=== PATIENT | female | born 1975 | race Caucasian/White ===

== ENCOUNTER → 2017-02-18 | Outpatient (CLI) | payer OTHER | LOC: FIMAGING 14:43 | PROVIDERS: ATTEND Physician Assistant Medical | DX: G35 Multiple sclerosis (principal) ==

== ENCOUNTER 2017-07-23 20:07 | Emergency (ER) | payer OTHER ==
[2017-07-23 20:20] VITALS: RESP 16; TEMP 98.1
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
[2017-07-23] MEDS ORDERED: IBUPROFEN 200 MG TAB PO ONE (20:26)
[2017-07-23] MEDS ORDERED: TDAP ADULT 0.5 ML INJ (BOOSTRIX) IM ONE (20:51)
[2017-07-23 21:37] VITALS: BP 120/64; PULSE 77; O2SAT 95
== END 2017-07-23 21:26 | disposition home or self-care (01) ==
LOC: CED 20:07
DX: S93.402A Sprain of unspecified ligament of left ankle, initial encounter (principal); S80.211A Abrasion, right knee, initial encounter; Z23 Encounter for immunization; X58.XXXA Exposure to other specified factors, initial encounter; Y99.8 Other external cause status; Y93.01 Activity, walking, marching and hiking
CPT/HCPCS: 73610-PO; L4386

== ENCOUNTER → 2017-09-16 | Outpatient (CLI) | payer OTHER | LOC: FIMAGING 15:26 | PROVIDERS: ATTEND Physician Assistant Medical | DX: G35 Multiple sclerosis (principal) ==

== ENCOUNTER → 2018-10-18 | Outpatient (CLI) | payer OTHER | LOC: FIMAGING 15:37 ==